=== PATIENT | female | born 1965 | race Caucasian/White ===

== ENCOUNTER 2024-10-28 10:45 | Inpatient (IN) | payer OTHER ==
[~2024-10-28] VITALS: Ht 165.1 cm; Wt 88.5 kg
[~2024-10-28 10:45] MED LIST: AMBIEN10 MG PO; CIPRO750 MG PO; Colace 100MG PO; NEURONTIN PO; PERCOCET 5/3251 TAB PO
[2024-10-28] MEDS ORDERED: PREVACID30 MG PO (13:33)
[2024-10-28] MEDS ORDERED: PRAVASTATIN SOD20 MG PO (13:33)
[2024-10-28] MEDS ORDERED: ZETIA10 MG PO (13:33)
[2024-10-28] MEDS ORDERED: PROPRANOLOL HCL60 M1 PO (13:33)
[2024-10-28 14:05] LABS: COVID-19 AG NEGATIVE (NEGATIVE)
[2024-11-03] MEDS ORDERED: VANCOMYCIN HCL 1,000 MG VIAL ONE ×4 (07:47→20:18)
[2024-11-03] MEDS ORDERED: CEFAZOLIN SODIUM 1,000 MG VIAL ONE ×2 (07:47→16:27)
[2024-11-03] MEDS ORDERED: METHYLPREDNISOLONE SOD SUCC 125 MG VIAL ONE ×3 (07:47→16:27)
[2024-11-03] MEDS ORDERED: ONDANSETRON HCL 2 MG/ML VIAL ONE (09:54)
[2024-11-03] MEDS ORDERED: METHYLPREDNISOLONE ACETATE 80 MG/ML VIAL ONE (09:55)
[2024-11-03] MEDS ORDERED: TRANEXAMIC ACID 100MG/1ML (1000MG) AMPUL IV ONE (10:28)
[2024-11-03] MEDS ORDERED: AMOX-CLAV 875-1 EACH PO (10:32)
[2024-11-03] MEDS ORDERED: MEDROLPACK PO (10:32)
[2024-11-03] MEDS ORDERED: PERCOCET 5-3251 EACH PO (10:32)
[2024-11-03] MEDS ORDERED: COLACE100 MG PO (10:33)
[2024-11-03] MEDS ORDERED: GABAPENTIN100 M2 PO (10:33)
[2024-11-03] MEDS ORDERED: ZOFRAN8 MG PO (10:33)
[2024-11-03] MEDS ORDERED: NEURONTIN800 MG PO (10:34)
[2024-11-03] MEDS ORDERED: ENALAPRILAT DIHYDRATE 1.25 MG/ML VIAL IV PRN (10:45)
[2024-11-03] MEDS ORDERED: PROMETHAZINE HCL 50 MG/ML AMPUL IM PRN (10:45)
[2024-11-03] MEDS ORDERED: 0.9 % SODIUM CHLORIDE 1,000 ML IV SCH (10:45)
[2024-11-03] MEDS ORDERED: MORPHINE SULFATE 4 MG/ML CARTRIDGE IV SCH (13:00)
[2024-11-03] MEDS ORDERED: MORPHINE SULFATE 4 MG/ML VIAL IV ONE ×2 (14:25→15:25)
[2024-11-03] MEDS ORDERED: CEFAZOLIN SODIUM 1,000 MG in 0.9 % SODIUM CHLORIDE 50 ML IV SCH (17:00)
[2024-11-03] MEDS ORDERED: METHYLPREDNISOLONE SOD SUCC 125 MG VIAL IV SCH (17:00)
[2024-11-03] MEDS ORDERED: DOCUSATE SODIUM 100MG CAP PO SCH (17:00)
[2024-11-03] MEDS ORDERED: FAMOtidine 20 MG TABLET PO SCH (17:00)
[2024-11-03 18:23] VITALS: BP 129/84; O2SAT 94
[2024-11-03] MEDS ORDERED: ACETAMINOPHEN 500 MG GEL..CAP PO SCH (20:00)
[2024-11-03] MEDS ORDERED: ZOLPIDEM TARTRATE 10 MG TABLET PO SCH (21:00)
[2024-11-03] MEDS ORDERED: GABAPENTIN 800 MG TABLET PO SCH (21:00)
[2024-11-03] MEDS ORDERED: VANCOMYCIN HCL 1,000 MG VIAL IV SCH (21:00)
[2024-11-03 21:25] VITALS: O2SAT 100
[2024-11-04] VITALS (9 sets, daily range): BP systolic 105–124; BP diastolic 70–77; O2SAT 90–98
[2024-11-04] MEDS ORDERED: SODIUM CHLORIDE 0.45 % 1,000 ML IV SCH
[2024-11-04] MEDS ORDERED: OxyCODONE HCL 5 MG TABLET (ROXICODONE) PO PRN (06:01)
[2024-11-04] MEDS ORDERED: VANCOMYCIN HCL 1,000 MG VIAL ONE ×2 (06:24→14:42)
[2024-11-04 06:49] LABS: BASO % 0.1 % (0.1-1.2); HEMATOCRIT 37.3 % (34.1-44.9); HEMOGLOBIN 12.6 g/dL (11.2-15.7); LYMPH # 1.66 (1.18-3.74); LYMPH % 11.2 % (19.3-53.1); MEAN CORPUSCULAR HEMOGLOBIN 30.1 pg (25.6-32.2); MONO # 0.64 (0.24-0.82); MONO % 4.3 % (4.7-12.5); NEUT # 12.43 (1.56-6.13); NEUT % 84.1 % (34.0-71.1); PLATELET COUNT 349 K/uL (163-369); RED BLOOD COUNT 4.18 M/uL (3.93-5.22); RED CELL DISTRIBUTION WIDTH 12.6 % (11.6-14.4)
[2024-11-04 07:25] LABS: CALCIUM 8.6 mg/dL (8.5-10.1); CREATININE SERUM 0.82 mg/dL (0.55-1.02); GFR 71.11; POTASSIUM 4.4 mEq/L (3.5-5.1)
[2024-11-04] MEDS ORDERED: TAMSULOSIN HCL 0.4 MG CAP PO SCH (09:00)
[2024-11-04] MEDS ORDERED: PREVACID30 M1 PO (11:25)
[2024-11-05] VITALS: O2SAT 90
[2024-11-05 01:23] VITALS: BP 129/66; O2SAT 100
[2024-11-05 05:39] VITALS: O2SAT 90
== END 2024-11-05 10:40 | disposition home or self-care (01) | DRG 428 ==
LOC: SURH 11-03 07:00 → O/R 11-03 12:05 → SURG 11-03 12:39
PROVIDERS: ADMIT Orthopaedic Surgery Orthopaedic Surgery of the Spine; ATTEND Orthopaedic Surgery Orthopaedic Surgery of the Spine
PROC: 0SG1071 Fusion of 2 or more Lumbar Vertebral Joints with Autologous Tissue Substitute, Posterior Approach, Posterior Column, Open Approach (ICD-10-PCS; 2024-11-03)
PROC: 0ST20ZZ Resection of Lumbar Vertebral Disc, Open Approach (ICD-10-PCS; 2024-11-03)
PROC: 0QB30ZZ Excision of Left Pelvic Bone, Open Approach (ICD-10-PCS; 2024-11-03)
PROC: 07DR0ZZ Extraction of Iliac Bone Marrow, Open Approach (ICD-10-PCS; 2024-11-03)
PROC: 4A1104G Monitoring of Peripheral Nervous Electrical Activity, Intraoperative, Open Approach (ICD-10-PCS; 2024-11-03)
PROC: 4A12X4Z Monitoring of Cardiac Electrical Activity, External Approach (ICD-10-PCS; 2024-11-03)
PROC: XRGC0R7 Fusion of 2 or more Lumbar Vertebral Joints using Custom-Made Anatomically Designed Interbody Fusion Device, Open Approach, New Technology Group 7 (ICD-10-PCS; principal; 2024-11-03 07:00)
DX: M43.16 Spondylolisthesis, lumbar region (principal); M48.062 Spinal stenosis, lumbar region with neurogenic claudication; I10 Essential (primary) hypertension